=== PATIENT | male | born 1985 | race Caucasian/White ===

== ENCOUNTER 2021-11-01 09:10 | Outpatient (CLI) | payer OTHER, SELFPAY ==
[2021-11-01 17:07] LABS: SARS PCR* Negative SARS-CoV-2 (Negative)
== END 2021-11-01 09:11 | disposition home or self-care (01) ==
LOC: LONREF 09:10
PROVIDERS: PCP Family Medicine; Visit Provider Family Medicine
DX: Z11.52 Encounter for screening for COVID-19 (principal)
CPT/HCPCS: 87635

== ENCOUNTER 2021-11-02 08:04 | Outpatient (CLI) | payer OTHER, SELFPAY | END 2021-11-02 08:05 | disposition home or self-care (01) | LOC: OP CLINIC 08:05 | PROVIDERS: PCP Family Medicine; Visit Provider Surgery | DX: K21.9 Gastro-esophageal reflux disease without esophagitis (principal); K22.89 Other specified disease of esophagus; K44.9 Diaphragmatic hernia without obstruction or gangrene | CPT/HCPCS: 43239; 88305; J2250; J3010 ==

== ENCOUNTER 2022-05-19 07:31 | Outpatient (CLI) | payer OTHER, SELFPAY | END 2022-05-19 07:32 | disposition home or self-care (01) | LOC: NFLDREF 15:48 | PROVIDERS: PCP Family Medicine; Referring Provider Family Medicine; Visit Provider Family Medicine | DX: Z00.00 Encounter for general adult medical examination without abnormal findings (principal); E78.00 Pure hypercholesterolemia, unspecified | CPT/HCPCS: 80048; 80061; 84460 ==

== ENCOUNTER 2022-08-22 07:36 | Outpatient (CLI) | payer OTHER, SELFPAY | END 2022-08-22 07:37 | disposition home or self-care (01) | LOC: NFLDREF 14:13 | PROVIDERS: PCP Family Medicine; Referring Provider Family Medicine; Visit Provider Family Medicine | DX: E78.00 Pure hypercholesterolemia, unspecified (principal) | CPT/HCPCS: 80061; 80076 ==

== ENCOUNTER 2022-11-25 07:39 | Outpatient (CLI) | payer OTHER, SELFPAY ==
--- NOTE | 2022-11-25 08:40 | W.ANESCHARGE ---
Anesthesia Charges Start Date/Time Anesthesia Start Date: 11/25/22 Anesthesia Start Time: 08:19 Stop Date/Time Anesthesia Stop Date: 11/25/22 Anesthesia Stop Time: 08:34
--- NOTE | 2022-11-25 09:10 | W.ANESCHARGE ---
Anesthesia Charges Start Date/Time Anesthesia Start Date: 11/25/22 Anesthesia Start Time: 08:19 Stop Date/Time Anesthesia Stop Date: 11/25/22 Anesthesia Stop Time: 08:34
== END 2022-11-25 07:40 | disposition home or self-care (01) ==
PROVIDERS: PCP Family Medicine; Visit Provider Internal Medicine
DX: K22.70 Barrett's esophagus without dysplasia (principal); K22.89 Other specified disease of esophagus
CPT/HCPCS: 00731; 43239; 88305; J2704

== ENCOUNTER 2023-07-11 07:33 | Outpatient (CLI) | payer OTHER, SELFPAY | END 2023-07-11 07:34 | disposition home or self-care (01) | LOC: NFLDREF 07-12 07:39 | PROVIDERS: PCP Family Medicine; Referring Provider Family Medicine; Visit Provider Family Medicine | DX: Z00.00 Encounter for general adult medical examination without abnormal findings (principal); E78.00 Pure hypercholesterolemia, unspecified; R79.89 Other specified abnormal findings of blood chemistry | CPT/HCPCS: 80053; 80061 ==

== ENCOUNTER 2023-10-09 07:33 | Outpatient (CLI) | payer OTHER, SELFPAY | END 2023-10-09 07:34 | disposition home or self-care (01) | LOC: NFLDREF 10-13 00:08 | PROVIDERS: PCP Family Medicine; Referring Provider Family Medicine; Visit Provider Family Medicine | DX: E78.00 Pure hypercholesterolemia, unspecified (principal); R79.89 Other specified abnormal findings of blood chemistry | CPT/HCPCS: 80061; 80076 ==

== ENCOUNTER 2024-08-26 07:31 | Outpatient (CLI) | payer OTHER, SELFPAY | END 2024-08-26 07:32 | disposition home or self-care (01) | LOC: NFLDREF 08-27 14:52 | PROVIDERS: PCP Family Medicine; Referring Provider Family Medicine; Visit Provider Family Medicine | DX: Z00.00 Encounter for general adult medical examination without abnormal findings (principal); E78.00 Pure hypercholesterolemia, unspecified | CPT/HCPCS: 80053; 80061 ==

== ENCOUNTER 2025-01-07 07:05 | Outpatient (CLI) | payer OTHER, SELFPAY ==
--- NOTE | 2025-01-07 08:13 | W.ANESCHARGE ---
Anesthesia Charges Start Date/Time Anesthesia Start Date: 01/07/25 Anesthesia Start Time: 07:53 Stop Date/Time Anesthesia Stop Date: 01/07/25 Anesthesia Stop Time: 08:10 Coding CPT Codes CPT Codes: ANES UPR GI NDSC PX NOS - 97034 ([id number]) P2 - PATIENT W/MILD SYST DISEASE, QK - COLLAR STITCHER 2-4 CNCRNT ANES PROC, QX - AUTOMOBILE BODY REPAIR SUPERVISOR SVC W/ MD MED DIRECTION
--- NOTE | 2025-01-07 08:13 | P.ANES_ITS ---
Anesthesia Charges Start Date/Time Anesthesia Start Date: 01/07/25 Anesthesia Start Time: 07:53 Stop Date/Time Anesthesia Stop Date: 01/07/25 Anesthesia Stop Time: 08:10 Coding CPT Codes CPT Codes: ANES UPR GI NDSC PX NOS - 99903 ([id number]) P2 - PATIENT W/MILD SYST DISEASE, QK - CORE DROPPER 2-4 CNCRNT ANES PROC, QX - SOLAR PROJECT COORDINATION SPECIALIST SVC W/ MD MED DIRECTION
--- NOTE | 2025-01-07 11:34 | P.ANES_ITS ---
Anesthesia Charges Start Date/Time Anesthesia Start Date: 01/07/25 Anesthesia Start Time: 07:53 Stop Date/Time Anesthesia Stop Date: 01/07/25 Anesthesia Stop Time: 08:10 Coding CPT Codes CPT Codes: ANES UPR GI NDSC PX NOS - 00306 ([id number]) P2 - PATIENT W/MILD SYST DISEASE, QK - KEY ACCOUNT EXECUTIVE 2-4 CNCRNT ANES PROC, QX - BORE MILL OPERATOR FOR PLASTIC SVC W/ MD MED DIRECTION
--- NOTE | 2025-01-07 11:34 | W.ANESCHARGE ---
Anesthesia Charges Start Date/Time Anesthesia Start Date: 01/07/25 Anesthesia Start Time: 07:53 Stop Date/Time Anesthesia Stop Date: 01/07/25 Anesthesia Stop Time: 08:10 Coding CPT Codes CPT Codes: ANES UPR GI NDSC PX NOS - [id number] ([id number]) P2 - PATIENT W/MILD SYST DISEASE, QK - MACHINERY MECHANIC 2-4 CNCRNT ANES PROC, QX - BOWLING TEACHER SVC W/ MD MED DIRECTION
== END 2025-01-07 07:06 | disposition home or self-care (01) ==
LOC: OP CLINIC 07:06
PROVIDERS: PCP Family Medicine; Visit Provider Internal Medicine
DX: K22.70 Barrett's esophagus without dysplasia (principal); K22.89 Other specified disease of esophagus
CPT/HCPCS: 00731; 43239; J2704; J3490